=== PATIENT | male | born 1975 | race Caucasian/White ===

== ENCOUNTER 2022-11-27 22:44 | Emergency (ER) | payer OTHER ==
[2022-11-27] MEDS ORDERED: Sodium Chloride 0.9% 1000 ML 1,000 ML IV STA (23:06)
[2022-11-27] MEDS ORDERED: Zofran 4 MG/2 ML VIAL IV ONE (23:06)
--- NOTE | 2022-11-27 23:06 | ERPHSYRPT ---
- History of Present Illness Time Seen by Provider: 11/27/22 23:06 Historian: patient Exam Limitations: no limitations Patient Subjective Stated Complaint: abd pain, one episode of vomiting, cough x 1.5 hrs Triage Nursing Assessment: pt ambulatory to bed by self, pt alert and oriented x3, pt c/o intermittent RUQ crampy abd pain, vomited once and cough that started 1.5 hrs ago after he got done eating dinner, pt has hx of pancreatitis, active bowel sounds in all quadrants, last BM was today Physician History: This is a 47-year-old white male patient who was experiencing some intermittent abdominal cramping that is centrally located without radiation and vomited once after eating out back this evening. Patient has a history in the distant past of pancreatitis and he states its been years since he has had any alcohol. Patient is a chronic daily smoker cigarettes. Patient arrives to the emergency department and is not in any pain at this time. Patient states that it is intermittent. He also had an episode of diarrhea. He states this was present before he ate Timing/Duration: today Activities at Onset: none Abdominal Pain Onset Location: LUQ, periumbilical Pain Radiation: no radiation Severity of Pain-Max: mild (Moderate) Severity of Pain-Current: none Modifying Factors: Improves With: vomiting Associated Symptoms: diarrhea (Present before he ate), vomiting (X1) Previous symptoms: no prior history, no recent treatment Allergies/Adverse Reactions: No Known Drug Allergies Allergy (Verified 11/27/22 22:50) Hx Tetanus, Diphtheria Vaccination/Date Given: Yes Hx Influenza Vaccination/Date Given: No Hx Pneumococcal Vaccination/Date Given: No Immunizations Up to Date: No Travel Risk - International Travel Have you traveled outside of the country in past 3 weeks: No - Coronavirus Screening Are you exhibiting any of the following symptoms?: No Close contact with a COVID-19 positive Pt in past 14-21 Days: No - Vaccine Status Have you recieved a Covid-19 vaccination: No - Review of Systems Constitutional: No Symptoms Eyes: No Symptoms Ears, Nose, & Throat: No Symptoms Respiratory: No Symptoms Cardiac: No Symptoms Abdominal/Gastrointestinal: Abdominal Pain, Vomiting (X1), Diarrhea (Present before he ate) Genitourinary Symptoms: No Symptoms Musculoskeletal: No Symptoms Skin: No Symptoms Neurological: No Symptoms Psychological: No Symptoms Endocrine: No Symptoms Hematologic/Lymphatic: No Symptoms Immunological/Allergic: No Symptoms All Other Systems: Reviewed and Negative - Past Medical History Pertinent Past Medical History: Yes Neurological History: No Pertinent History ENT History: No Pertinent History Cardiac History: No Pertinent History Respiratory History: No Pertinent History Endocrine Medical History: No Pertinent History Musculoskeletal History: No Pertinent History GI Medical History: GERD, Pancreatitis History: No Pertinent History Psycho-Social History: No Pertinent History Male Reproductive Disorders: No Pertinent History - Past Surgical History Past Surgical History: Yes Neuro Surgical History: No Pertinent History Cardiac: No Pertinent History Respiratory: No Pertinent History Gastrointestinal: No Pertinent History Genitourinary: No Pertinent History Musculoskeletal: No Pertinent History Male Surgical History: No Pertinent History Other Surgical History: "water removed from testicle when I was 2" per pt - Social History Smoking Status: Current every day smoker Exposure to second hand smoke: No Patient Lives Alone: No - Nursing Vital Signs Nursing Vital Signs: Initial Vital Signs Temperature 99.1 F 11/27/22 22:51 Pulse Rate 91 H 11/27/22 22:51 Respiratory Rate 18 11/27/22 22:51 Blood Pressure 117/92 11/27/22 22:51 O2 Sat by Pulse Oximetry 99 11/27/22 22:51 Pain Scale Pain Intensity 8 - Physical Exam General Appearance: no apparent distress, alert, anxiety Eye Exam: PERRL/EOMI, eyes nml inspection Ears, Nose, Throat Exam: normal ENT inspection, moist mucous membranes Neck Exam: normal inspection, non-tender, supple, full range of motion Respiratory Exam: normal breath sounds, lungs clear, airway intact, No chest tenderness, No respiratory distress Cardiovascular Exam: regular rate/rhythm, normal heart sounds, normal peripheral pulses Gastrointestinal/Abdomen Exam: soft, normal bowel sounds, tenderness (Periumbilical region to the left), guarding (Same region to palpation), No maribel ound Rectal Exam: not done Back Exam: normal inspection, normal range of motion, No CVA tenderness, No vertebral tenderness Extremity Exam: normal inspection, normal range of motion, pelvis stable Neurologic Exam: alert, oriented x 3, cooperative, senior mobile developer II-XII nml as tested, normal mood/affect, nml cerebellar function, nml station & gait, sensation nml Skin Exam: normal color, warm, dry Lymphatic Exam: No adenopathy SpO2 Interpretation: normal SpO2: 99 O2 Delivery: Room Air - Course Nursing assessment & vital signs reviewed: Yes Ordered Tests: Active Orders 24 hr Category Date Time Status IV Insertion STAT Care 11/27/22 23:06 Active ABDOMEN AND PELVIS W/0 CONTRAS [CT] Stat Exams 11/27/22 23:06 Taken AMYLASE Stat Lab 11/27/22 23:11 Completed CBC W DIFF Stat Lab 11/27/22 23:11 Completed CMP Stat Lab 11/27/22 23:11 Completed LIPASE Stat Lab 11/27/22 23:11 Completed UA W/RFX UR CULTURE Stat Lab 11/27/22 23:19 Completed Medication Summary Discontinued Medications Generic Name Dose Route Start Last Admin Trade Name Freq PRN Reason Stop Dose Admin Methylprednisolone Sodium 0 mg 11/28/22 00:28 Succinate 125 mg/ Sterile IV 11/28/22 00:29 Water 2 ml STAT ONE Sodium Chloride 1,000 mls @ 999 mls/hr 11/27/22 23:06 11/27/22 23:12 Sodium Chloride 0.9% 1000 Ml IV 11/28/22 00:06 999 mls/hr .Q1H1M STA Administration Sodium Chloride Confirm 11/27/22 23:10 Sodium Chloride 0.9% 1000 Ml Administered 11/27/22 23:11 Dose 1,000 mls @ ud .ROUTE .STK-MED ONE Metronidazole 500 mg 11/28/22 00:27 Metronidazole 500 Mg Tablet PO 11/28/22 00:28 STAT ONE Ondansetron HCl 4 mg 11/27/22 23:06 11/27/22 23:13 Ondansetron Hcl 4 Mg/2 Ml Vial IV 11/27/22 23:07 4 mg STAT ONE Administration Ondansetron HCl Confirm 11/27/22 23:10 Ondansetron Hcl 4 Mg/2 Ml Vial Administered 11/27/22 23:11 Dose 4 mg .ROUTE .STK-MED ONE Lab/Rad Data: Laboratory Result Diagrams 11/27/22 23:11 11/27/22 23:11 Laboratory Results 11/27/22 11/27/22 11/27/22 Range/Units 23:19 23:11 23:11 WBC 10.7 H (4.0-10.5) x10^3/uL RBC 5.46 (4.1-5.6) x10^6/uL Hgb 16.7 (12.5-18.0) g/dL Hct 48.6 (42-50) % MCV 89.0 (78-100) fL MCH 30.6 (26-32) pg MCHC 34.4 (32-36) g/dL RDW 13.2 (11.5-14.0) % Plt Count 138 L (150-450) x10^3/uL MPV 10.7 (7.5-11.0) fL Gran % 79.1 H (36.0-66.0) % Immature Gran % (Auto) 0.2 (0.00-0.4) % Nucleat RBC Rel Count 0.0 (0.00-0.1) % Eos # (Auto) 0.12 (0-0.5) x10^3/uL Immature Gran # (Auto) 0.02 (0.00-0.03) x10^3u/L Absolute Lymphs (auto) 1.50 (1.0-4.6) x10^3/uL Absolute Monos (auto) 0.56 (0.0-1.3) x10^3/uL Absolute Nucleated RBC 0.00 (0.00-0.01) x10^3u/L Lymphocytes % 14.1 L (24.0-44.0) % Monocytes % 5.2 (0.0-12.0) % Eosinophils % 1.1 (0.00-5.0) % Basophils % 0.3 (0.0-0.4) % Absolute Granulocytes 8.44 H (1.4-6.9) x10^3/uL Basophils # 0.03 (0-0.4) x10^3/uL Sodium 140 (137-145) mmol/L Potassium 3.6 (3.5-5.1) mmol/L Chloride 104 (98-107) mmol/L Carbon Dioxide 29 (22-30) mmol/L Anion Gap 10.8 (5-15) MEQ/L BUN 15 (9-20) mg/dL Creatinine 1.01 (0.66-1.25) mg/dL Estimated GFR > 60.0 ML/MIN Glucose 103 (74-106) mg/dL Calcium 8.8 (8.4-10.2) mg/dL Total Bilirubin 0.90 (0.2-1.3) mg/dL AST 28 (17-59) U/L ALT 27 (0-50) U/L Alkaline Phosphatase 119 (38-126) U/L Serum Total Protein 7.8 (6.3-8.2) g/dL Albumin 4.4 (3.5-5.0) g/dL Amylase 70 (30-110) U/L Lipase 130 (23-300) U/L Urine Color Yellow (Yellow) Urine Appearance Clear (Clear) Urine pH 7.0 (4.6-8.0) Ur Specific [place] 1.020 (1.005-1.030) Urine Protein Negative (Negative) Urine Glucose (UA) Negative (Negative) mg/dL Urine Ketones Negative (Negative) Urine Blood Negative (Negative) Urine Nitrite Negative (Negative) Urine Bilirubin Negative (Negative) Urine Urobilinogen 1.0 A (0.2) mg/dL Ur Leukocyte Esterase Negative (Negative) U Hyaline Cast (Auto) NONE SEEN (0-2) /LPF Urine Microscopic RBC 0-2 (0-5) /HPF Urine Microscopic WBC 0-2 (0-5) /HPF Ur Epithelial Cells None Seen (None Seen) /HPF Urine Bacteria None Seen (None Seen) /HPF Urine Culture Reflexed NO (NO) - Progress Progress: improved, pain not gone completely, re-examined Progress Note: 11/28/22 00:34 CAT scan of the abdomen pelvis shows for the located small bowel with thickened bowel wall loops. No evidence of bowel obstruction This patient's medical issue is of moderate complexity. This is based on review of the patient's past medical history, history of present illness and physical findings on examination. The above prompted me to perform a work-up that included placement of intravenous line, infusion of intravenous normal saline, infusion of Zofran intravenously, obtain urinalysis, perform a CBC, CMP, amylase and lipase. I reviewed all the above studies and it appears the patient has a type of enteritis. In the emergency department we will provide him with an oral dose of Flagyl as well as a single intravenous dose of Solu-Medrol for inflammation treatment. Discharge plan was discussed with the patient and his spouse. This includes backing his diet off to a clear liquid diet for 12 to 24 hours, take his Flagyl as prescribed. He can then advance his diet slowly and avoid fatty greasy spicy foods once he is tolerating clear liquid diet well. He is to follow-up with his primary care provider for further evaluation management. Counseled pt/family regarding: lab results, diagnosis, need for follow-up, rad results Medical Desision Making - Independent Historian Additional History obtained from: Spouse - Discussion of managment Reviewed:: Test results Agreed on:: Treatment plan, need for follow-up - Diagnostic Testing Diagnostic test were ordered, analyzed, and reviewed by me: Yes Radiological Interpretation: Reviewed by me, Teleradiologist Report - Risk of complications Low Risk: Low risk of morbidity from additional dx testing or treatment The pt has a mod risk of morbidity or mortality based on: Need for prescription drug management - Departure Departure Disposition: Home Clinical Impression: Enteritis due to adenovirus Condition: Stable Critical Care Time: No Additional Instructions: Clear liquid diet for 12 to 24 hours. Once tolerating your clear liquid diet well, may slowly advance your diet as tolerated. Take your antibiotics as prescribed follow-up with your primary care provider for further evaluation management. Prescriptions: Ondansetron ODT 4 MG [Zofran Odt 4 mg] 4 mg PO Q6H PRN PRN #10 tablet PRN Reason: Vomiting Metronidazole 500 mg [Flagyl 500 MG] 500 mg PO TID #21 tablet
[2022-11-27] MEDS ORDERED: Zofran 4 MG/2 ML VIAL ONE (23:10)
[2022-11-27] MEDS ORDERED: Sodium Chloride 0.9% 1000 ML 1,000 ML ONE (23:10)
[2022-11-27 23:13] LABS: Absolute Neutrophil Ct (ANC) 8.44 x10^3/uL (1.4-6.9); BASOPHIL % 0.3 % (0.0-0.4); Basophil (Absolute #) 0.03 x10^3/uL (0-0.4); Eosinophil % 1.1 % (0.00-5.0); Eosinophil (Absolute #) 0.12 x10^3/uL (0-0.5); Hematocrit 48.6 % (42-50); Hemoglobin 16.7 g/dL (12.5-18.0); IMMATURE GRAN # 0.02 x10^3u/L (0.00-0.03); IMMATURE GRAN % 0.2 % (0.00-0.4); Lymphocytes % 14.1 % (24.0-44.0); Mean Corpuscular Hemoglobin 30.6 pg (26-32); Mean Corpuscular Hgb Concent. 34.4 g/dL (32-36); Mean Platelet Volume 10.7 fL (7.5-11.0); Monocyte (Absolute #) 0.56 x10^3/uL (0.0-1.3); Monocytes % 5.2 % (0.0-12.0); Neutrophil % 79.1 % (36.0-66.0); Platelet Count 138 x10^3/uL (150-450); Red Blood Count 5.46 x10^6/uL (4.1-5.6); Red Cell Distribution Width 13.2 % (11.5-14.0); White Blood Count 10.7 x10^3/uL (4.0-10.5)
[2022-11-27 23:26] LABS: ALBUMIN 4.4 g/dL (3.5-5.0); ALKALINE PHOSPHATASE 119 U/L (38-126); AMYLASE 70 U/L (30-110); ANION GAP 10.8 MEQ/L (5-15); BLOOD UREA NITROGEN 15 mg/dL (9-20); CHLORIDE 104 mmol/L (98-107); Calcium 8.8 mg/dL (8.4-10.2); Carbon Dioxide 29 mmol/L (22-30); Creatinine 1 1.01 mg/dL (0.66-1.25); EST GLOMERULAR FILTRATION RATE > 60.0 ML/MIN; Glucose 103 mg/dL (74-106); LIPASE 130 U/L (23-300); Potassium 3.6 mmol/L (3.5-5.1); SGOT/AST 28 U/L (17-59); SGPT/ALT 27 U/L (0-50); SODIUM 140 mmol/L (137-145); Total Protein 7.8 g/dL (6.3-8.2)
[2022-11-27 23:58] LABS: ADD URINE CULTURE? NO (NO); Appearance Clear (Clear); Bacteria None Seen /HPF (None Seen); Bilirubin Negative (Negative); Blood Negative (Negative); Epithelial Cells None Seen /HPF (None Seen); Glucose, Urine Negative (Negative); Hyaline Casts NONE SEEN /LPF (0-2); Ketones Negative (Negative); Leukocyte Esterase Negative (Negative); Nitrite Negative (Negative); Protein,Urine Dip Negative (Negative); RBC 0-2 /HPF (0-5); WBC 0-2 /HPF (0-5)
[2022-11-28] MEDS ORDERED: Flagyl 500 MG PO ONE (00:27)
[2022-11-28] MEDS ORDERED: solu-MEDROL 125 MG, Sterile H2O 10 ml 2 ML IV ONE ×2 (00:28)
[2022-11-28 00:37] VITALS: O2SAT 99
[2022-11-28] MEDS ORDERED: Sterile H2O 10 ml IJ ONE (00:41)
[2022-11-28] MEDS ORDERED: Flagyl 500 MG ONE (00:41)
[2022-11-28] MEDS ORDERED: solu-MEDROL ONE (00:41)
[2022-11-28 00:55] VITALS: BP 127/88; PULSE 85
--- NOTE | 2022-11-28 08:02 | XRAY ---
Indication: Abdomen pain, cough, short of breath, nausea, and vomiting. History of pancreatitis. Multiple contiguous axial images obtained through the abdomen and pelvis without contrast. Comparison: None Lung bases demonstrates 3-4 mm peripheral lingula and left lower lobe indeterminant noncalcified nodules. Heart not enlarged. Stomach mildly fluid distended. Noncontrasted stomach and bowel loops appear nonobstructed with normal appendix. A few jejunal bowel loops demonstrate mild circumferential wall thickening favoring enteritis. Minimal sigmoid diverticulosis without diverticulitis. No free fluid/air. A few tiny calcified splenic granulomas. Remaining liver, gallbladder, pancreas, spleen, adrenal glands, kidneys, ureters, and bladder are unremarkable for noncontrast exam. Mild scattered aortoiliac calcifications without AAA. Osseous structures intact. No ventral or inguinal hernias. Impression: 1. Mild enteritis. 2. Chronic findings including indeterminant noncalcified pulmonary micronodules, sigmoid diverticulosis, arteriosclerotic disease, and old granulomatous disease. Comment: Preliminary interpretation made by [facility] [place]. No critical discrepancy.
== END 2022-11-28 01:00 | disposition home or self-care (01) ==
LOC: ED 22:44
DX: A08.2 Adenoviral enteritis (principal); R10.9 Unspecified abdominal pain; R11.10 Vomiting, unspecified; R19.7 Diarrhea, unspecified; Z28.310 Unvaccinated for COVID-19; Z72.0 Tobacco use
CPT/HCPCS: 36000; 36415; 74176; 80053; 81001; 82150; 83690; 85025; 96360; 96374; 99284; J2405; J2930; A9270-GY